=== PATIENT | female | born 1985 | race African-American/Black ===

== ENCOUNTER 2016-08-10 15:07 | Emergency (ER) | payer MEDICAID ==
[~2016-08-10] VITALS: Ht 175.3 cm; Wt 74.0 kg
[2016-08-10] MEDS ORDERED: TRAZ-129 PO (15:17)
[2016-08-10] MEDS ORDERED: SERT25TA PO (15:17)
[2016-08-10] MEDS ORDERED: ARIP10TA14 PO (15:17)
[2016-08-10 20:26] LABS: CLARITY URINE CLEAR (CLEAR); COLOR URINE YELLOW (YELLOW); GLUCOSE URINE 2+ (NEGATIVE); KETONES URINE TRACE (NEGATIVE); LEUKOCYTE ESTERASE URINE TRACE (NEGATIVE); NITRITE URINE NEGATIVE (NEGATIVE); OCCULT BLOOD URINE NEGATIVE (NEGATIVE); PH URINE 6.5 (4.5-8.0); PROTEIN URINE NEGATIVE (NEGATIVE); UROBILINOGEN URINE 0.2 E.U./dL (0.2-1.0)
[2016-08-10 20:31] LABS: BASOPHILS % 0.4 % (0.0-2.0); DIFFERENTIAL COMMENT 0; EOSINOPHILS % 0.5 % (0.0-5.0); HEMATOCRIT. 38.3 % (36.0-48.0); HEMOGLOBIN. 12.8 g/dL (12.0-16.0); LYMPHOCYTES % 16.9 % (20.0-50.0); MEAN CORPUSCULAR HEMOGLOBIN 34.6 pg (28.0-32.0); MEAN CORPUSCULAR HGB CONC 33.5 g/dL (31.0-37.0); MEAN CORPUSCULAR VOLUME 103.4 fL (81.0-99.0); MEAN PLATELET VOLUME 7.2 fl (7.4-10.4); MONOCYTES % 8.3 % (2.0-8.0); NEUTROPHILS % 73.9 % (40.0-76.0); PLATELET 243 x1000/uL (130-400); RED BLOOD CELL COUNT 3.71 mill/uL (4.2-5.4); RED CELL DISTRIBUTION WIDTH 14.6 % (11.6-14.6); WHITE BLOOD COUNT 6.1 x1000/uL (4.5-11.0)
[2016-08-10 20:39] LABS: PROTHROMBIN TIME 10.7 sec
[2016-08-10 20:44] LABS: HCG SCREEN NEGATIVE
[2016-08-10] MEDS ORDERED: SODIUM CHLORIDE 0.9% 1,000 ML IV ONE (20:46)
[2016-08-10] MEDS ORDERED: ONDANSETRON HCL 4MG/2ML VIAL IV STA (20:46)
[2016-08-10] MEDS ORDERED: FAMOTIDINE 20MG/2ML VIAL IV STA (20:46)
[2016-08-10 20:49] LABS: ALANINE AMINOTRANSFERASE 121 IU/L (13-61); ALBUMIN 3.4 g/dL (3.4-5.0); ANION GAP 11; CALCIUM 8.7 mg/dL (8.5-10.1); CARBON DIOXIDE 31 mEq/L (21-32); CHLORIDE 99 mEq/L (98-107); INDEX HEMOLYSI 1 (1-3); INDEX ICTERIC 1 (1-4); INDEX LIPEMIC 1 (1-3); LIPASE 115 IU/L (73-393); UREA NITROGEN BLOOD 6 mg/dL (7-21); eGFR > 60 mL/min (>60)
[2016-08-10 20:54] LABS: BACTERIA URINE TRACE; RBC URINE NONE SEEN /hpf (0-2); SQUAMOUS EPITHELIAL CELL URINE FEW /lpf (RARE/1+); WBC URINE 0-2 /hpf (0-2)
[2016-08-10] MEDS ORDERED: VISCOUS LIDOCAINE 2% 15 ML UDC PO STA (21:41)
[2016-08-10] MEDS ORDERED: MAGNESIUM/ALUMINUM HYDROXIDE/SIMETHICONE 30ML UDC PO STA (21:41)
[2016-08-11 00:05] VITALS: BP 127/76
== END 2016-08-11 00:06 | disposition home or self-care (01) ==
LOC: ER 16:16
DX: K76.0 Fatty (change of) liver, not elsewhere classified (principal); F10.10 Alcohol abuse, uncomplicated; R11.2 Nausea with vomiting, unspecified; F17.210 Nicotine dependence, cigarettes, uncomplicated; Z79.899 Other long term (current) drug therapy
CPT/HCPCS: 36415; 76705; 80053; 81001; 83690; 84703; 85025; 85610; 96361; 96374; 96375; 99285; J2405; J3490; J7030; Z7610

== ENCOUNTER 2020-01-30 13:43 | Inpatient (IN) | payer MEDICAID ==
[~2020-01-30] VITALS: Ht 175.3 cm; Wt 97.5 kg
[~2020-01-30 13:43] MED LIST: ABIL10 PO; SERT25TA PO; TRAZ-251 PO
[2020-01-30] MEDS ORDERED: ONDANSETRON HCL 4MG/2ML INJ IV STA (14:44)
[2020-01-30] MEDS ORDERED: SODIUM CHLORIDE 0.9% 1,000 ML IV ONE (14:44)
[2020-01-30] MEDS ORDERED: LEVETIRACETAM 500MG PREMIX 100 ML IV ONE (14:45)
[2020-01-30] MEDS ORDERED: FOLIC ACID 1 MG, THIAMINE HCL 100 MG, MVI, ADULT NO.1 10 ML in DEXTROSE 5% WATER 1,000 ML IV ONE ×4 (15:00)
[2020-01-30] MEDS ORDERED: LORAZEPAM 2MG/ML CPJ IV ONE (15:00)
[2020-01-30 15:14] LABS: CHLORIDE 105 mEq/L (98-107)
[2020-01-30 15:18] LABS: ETHANOL BLOOD 34 mg/dL
[2020-01-30 15:19] LABS: HCG SCREEN NEGATIVE; HEMATOCRIT. 37.7 % (36.0-48.0); HEMOGLOBIN. 12.6 g/dL (12.0-16.0); MEAN CORPUSCULAR HEMOGLOBIN 33.5 pg (28.0-32.0); MEAN CORPUSCULAR VOLUME 100.4 fL (81.0-99.0); MEAN PLATELET VOLUME 8.1 fl (7.4-10.4); MONOCYTES % 6.7 % (2.0-8.0); NEUTROPHILS % 84.3 % (40.0-76.0); PLATELET 249 x1000/uL (130-400); RED BLOOD CELL COUNT 3.76 mill/uL (4.2-5.4); RED CELL DISTRIBUTION WIDTH 16.8 % (11.6-14.6)
[2020-01-30] MEDS ORDERED: MAGNESIUM 1 G PREMIX 100 ML IV ONE (16:30)
[2020-01-30] MEDS ORDERED: LORAZEPAM 2MG/ML CPJ IV PRN (17:15)
[2020-01-30] MEDS ORDERED: GUAIFENESIN 200MG/10ML SUGAR FREE UDC PO PRN (17:15)
[2020-01-30] MEDS ORDERED: ACETAMINOPHEN 325MG TABLET PO PRN (17:15)
[2020-01-30] MEDS ORDERED: IPRATROPIUM/ALBUTEROL 0.5-3(2.5)MG/3ML NEB HHN PRN (17:15)
[2020-01-30] MEDS ORDERED: ONDANSETRON HCL 4MG/2ML INJ IV PRN (17:15)
[2020-01-30] MEDS ORDERED: DIPHENHYDRAMINE 50MG/ML VIAL IV PRN (17:15)
[2020-01-30] MEDS ORDERED: MVI, ADULT NO.1 10 ML, FOLIC ACID 1 MG, THIAMINE HCL 100 MG in SODIUM CHLORIDE 0.9% 1,0... IV ONE ×4 (17:15)
[2020-01-30] MEDS ORDERED: DOCUSATE SODIUM 100MG CAPSULE PO PRN (17:15)
[2020-01-30] MEDS ORDERED: CLONIDINE 0.1MG TABLET PO PRN (17:15)
[2020-01-30] MEDS ORDERED: MAGNESIUM/ALUMINUM HYDROXIDE/SIMETHICONE 30ML UDC PO PRN (17:15)
[2020-01-30] MEDS: SODIUM CHLORIDE 0.45% 1,000 ML IV SCH (17:42)
[2020-01-30] MEDS ORDERED: ENOXAPARIN 40MG/0.4ML SYR SUBCUT SCH (18:00)
[2020-01-30 22:00] VITALS: BP 120/85
[2020-01-30 23:00] VITALS: BP 118/79
[2020-01-30] MEDS ORDERED: QUET400T MT (23:35)
[2020-01-31] VITALS: BP 136/89
[2020-01-31] MEDS: LEVETIRACETAM 500MG TABLET PO SCH ×4 (00:14→21:23)
[2020-01-31] MEDS: SODIUM CHLORIDE 0.9% INJ 3ML FLUSH IVF SCH ×4 (00:14→21:23)
[2020-01-31] MEDS: SODIUM CHLORIDE 0.45% 1,000 ML IV SCH ×3 (03:15→22:34)
[2020-01-31 04:00] VITALS: BP 117/82
[2020-01-31 06:55] LABS: EOSINOPHILS % 0.1 % (0.0-5.0); HEMOGLOBIN. 12.4 g/dL (12.0-16.0); LYMPHOCYTES % 16.7 % (20.0-50.0); MEAN CORPUSCULAR HEMOGLOBIN 34.2 pg (28.0-32.0); MEAN CORPUSCULAR VOLUME 99.5 fL (81.0-99.0); MONOCYTES % 7.8 % (2.0-8.0); NEUTROPHILS % 75.4 % (40.0-76.0); PLATELET 233 x1000/uL (130-400); RED BLOOD CELL COUNT 3.61 mill/uL (4.2-5.4); RED CELL DISTRIBUTION WIDTH 16.6 % (11.6-14.6)
[2020-01-31 07:02] LABS: CHLORIDE 106 mEq/L (98-107)
[2020-01-31 08:00] VITALS: BP 124/86
[2020-01-31] MEDS: MULTIVITAMINS,THER W-MINERALS TABLET PO SCH (08:27)
[2020-01-31] MEDS: TRAMADOL 50MG TABLET PO PRN ×3 (08:27→21:22)
[2020-01-31] MEDS: SERTRALINE HCL 25MG TABLET PO SCH (08:27)
[2020-01-31] MEDS: FOLIC ACID/VITAMIN B COMP W-C TABLET PO SCH (08:27)
[2020-01-31 12:00] VITALS: BP 143/99
[2020-01-31] MEDS: ENOXAPARIN 30MG/0.3ML SYR SUBCUT SCH ×3 (13:22→21:23)
[2020-01-31 16:00] VITALS: BP 139/95
[2020-01-31] MEDS: VISCOUS LIDOCAINE 2% 15 ML UDC MM PRN (18:57)
[2020-01-31] MEDS: QUETIAPINE FUMARATE 50MG TABLET PO SCH (18:57)
[2020-01-31] MEDS: DIVALPROEX SODIUM 500MG ER TABLET PO SCH (18:57)
[2020-01-31 20:00] VITALS: BP 130/86
[2020-01-31] MEDS ORDERED: TRAZODONE HCL 50MG TABLET PO SCH (21:00)
[2020-02-01] VITALS: BP 136/95
[2020-02-01 04:00] VITALS: BP 135/92
[2020-02-01] MEDS: SODIUM CHLORIDE 0.9% INJ 3ML FLUSH IVF SCH ×2 (05:39→13:19)
[2020-02-01 08:00] VITALS: BP 135/84
[2020-02-01] MEDS: LEVETIRACETAM 500MG TABLET PO SCH (08:27)
[2020-02-01] MEDS: DIVALPROEX SODIUM 500MG ER TABLET PO SCH (08:27)
[2020-02-01] MEDS: FOLIC ACID/VITAMIN B COMP W-C TABLET PO SCH (08:27)
[2020-02-01] MEDS: VISCOUS LIDOCAINE 2% 15 ML UDC MM PRN (08:27)
[2020-02-01] MEDS: QUETIAPINE FUMARATE 50MG TABLET PO SCH (08:27)
[2020-02-01] MEDS: MULTIVITAMINS,THER W-MINERALS TABLET PO SCH (08:27)
[2020-02-01] MEDS: SERTRALINE HCL 25MG TABLET PO SCH (08:27)
[2020-02-01] MEDS: TRAMADOL 50MG TABLET PO PRN (08:32)
[2020-02-01] MEDS: ENOXAPARIN 30MG/0.3ML SYR SUBCUT SCH (08:32)
[2020-02-01] MEDS: SODIUM CHLORIDE 0.45% 1,000 ML IV SCH (09:53)
[2020-02-01 12:00] VITALS: BP 130/94
[2020-02-01 14:15] VITALS: BP 130/94
== END 2020-02-01 15:09 | disposition home or self-care (01) | DRG 53 ==
LOC: ER 13:51 → 5WST 16:59 → EDBEDREQTM 17:04 → ENRESERV 19:45
PROVIDERS: ADMIT Internal Medicine; ATTEND Internal Medicine
DX: R56.9 Unspecified convulsions (principal); F31.9 Bipolar disorder, unspecified; F20.9 Schizophrenia, unspecified; E87.1 Hypo-osmolality and hyponatremia; F10.10 Alcohol abuse, uncomplicated; Y90.1 Blood alcohol level of 20-39 mg/100 ml; Z79.899 Other long term (current) drug therapy
CPT/HCPCS: 36415; 71045; 73030; 80053; 80165; 80320; 82962; 83735; 84484; 84703; 85025; 93005; 99285; J1650; J1953; J2060; J2405; J3411; J3475; J3490; J7030; J7070; G0480

== ENCOUNTER 2024-10-02 15:15 | Emergency (ER) | payer MEDICAID, OTHER ==
[~2024-10-02] VITALS: Ht 177.8 cm; Wt 90.0 kg
[~2024-10-02 15:15] MED LIST changes: -ABIL10 PO; +B50 PO; +DIVA500T3 MT; +KEPP500 MT; +PROT40 MT; -SERT25TA PO; -TRAZ-251 PO
[2024-10-02 15:19] VITALS: O2SAT 99
[2024-10-02] MEDS: LEVETIRACETAM 1000MG PREMIX 100 ML IV ONE (15:55)
[2024-10-02] MEDS: SODIUM CHLORIDE 0.9% 1,000 ML IV ONE (15:55)
[2024-10-02 15:59] LABS: BASOPHILS % 0.7 % (0.0-2.0); HEMATOCRIT. 35.5 % (36.0-48.0); LYMPHOCYTES % 25.4 % (20.0-50.0); MEAN CORPUSCULAR HEMOGLOBIN 31.5 pg (28.0-32.0); MEAN CORPUSCULAR HGB CONC 33.8 g/dL (31.0-37.0); MEAN CORPUSCULAR VOLUME 93.5 fL (81.0-99.0); MEAN PLATELET VOLUME 7.2 fl (7.4-10.4); MONOCYTES % 4.6 % (2.0-8.0); NEUTROPHILS % 69.3 % (40.0-76.0); PLATELET 344 x1000/uL (130-400); RED CELL DISTRIBUTION WIDTH 14.8 % (11.6-14.6); WHITE BLOOD COUNT 6.7 x1000/uL (4.5-11.0)
[2024-10-02 16:11] LABS: CARBON DIOXIDE 21 mEq/L (21-32); CHLORIDE 105 mEq/L (98-107); POTASSIUM 3.7 mEq/L (3.5-5.1); SODIUM 140 mEq/L (136-145)
[2024-10-02 16:12] LABS: CALCIUM 8.5 mg/dL (8.7-10.4)
[2024-10-02 16:16] LABS: HCG SCREEN NEGATIVE
[2024-10-02 16:17] LABS: CREATININE 0.8 mg/dL (0.6-1.0); GLUCOSE 84 mg/dL (70-105); UREA NITROGEN BLOOD 11 mg/dL (9-23)
[2024-10-02 16:29] LABS: ETHANOL BLOOD 473 mg/dL (<10)
[2024-10-02] MEDS: DIVALPROEX SODIUM 250MG DR TABLET PO ONE (16:57)
[2024-10-02 17:30] VITALS: BP 120/57; PULSE 88; RESP 31; TEMP 36.9; O2SAT 100
== END 2024-10-02 18:00 | disposition home or self-care (01) ==
LOC: ER 15:15
DX: R56.9 Unspecified convulsions (principal); E11.9 Type 2 diabetes mellitus without complications; Z91.148 Patient's other noncompliance with medication regimen for other reason; Z79.899 Other long term (current) drug therapy
CPT/HCPCS: 80048; 80320; 84703; 85025; 36415; 96365; 99284; J1953; J7030; G0480